=== PATIENT | female | born 1960 | race Caucasian/White ===

== ENCOUNTER → 2018-07-26 | Day surgery (SDC) | payer BC ==
[2018-07-22 13:01] LABS: BASOPHILS % 0.2 % (0.0-1.0); EOSINOPHILS % 0.1 % (0.0-6.0); HEMOGLOBIN 13.9 g/dL (12.0-16.0); LYMPHOCYTES # (AUTO) 0.8 (1.0-3.2); LYMPHOCYTES % 4.9 % (18.0-39.1); MEAN CORPUSCULAR HEMOGLOBIN 29.6 pg (28-32); MEAN CORPUSCULAR HGB CONC 32.3 g/dL (31-35); MEAN CORPUSCULAR VOLUME 91.7 fL (81-99); MONOCYTES # (AUTO) 0.5 (0.2-0.8); MONOCYTES % 3.1 % (4.4-11.3); NEUTROPHILS # (AUTO) 15.3 (2.1-6.9); NEUTROPHILS % 90.3 % (38.7-80.0); PLATELET COUNT 319 x10e3/uL (140-360); RED BLOOD COUNT 4.69 x10e6/uL (3.6-5.1); RED CELL DISTRIBUTION WIDTH 16.9 % (11.7-14.4)
[2018-07-22 13:18] LABS: ANION GAP 18.2 mmol/L (8-16); BLOOD UREA NITROGEN 11 mg/dL (7-26); BUN/CREATININE RATIO 14 (6-25); CALCIUM 9.8 mg/dL (8.4-10.2); CARBON DIOXIDE 28 mmol/L (22-29); CHLORIDE 99 mmol/L (98-107); CREATININE, SERUM 0.76 mg/dL (0.57-1.11); EST GLOMERULAR FILTRATION RATE > 60 ML/MIN (60-); GLUCOSE 164 mg/dL (74-118); POTASSIUM 4.2 mmol/L (3.5-5.1); SODIUM 141 mmol/L (136-145)
--- NOTE | 2018-07-22 13:26 | Diagnostic Imaging Report ---
EXAMINATION: PA and lateral views of the chest. COMPARISON: None CLINICAL HISTORY: Preoperative study for thumb surgery DISCUSSION: The lungs are well-inflated. No focal airspace consolidation, pleural effusion, or pneumothorax. Linear opacity in the lingula compatible with scar or subsegmental atelectasis. Increased attenuation over the lung bases reflects summation from overlying soft tissues. Spinal stimulator device projects over the vertebral column. Cervical spine fusion hardware partially visualized. Normal heart size without overt pulmonary edema. No acute osseous abnormality. IMPRESSION: Linear atelectasis or scar in the lingula. Otherwise no acute cardiopulmonary abnormality. Signed by: Dr. Brandan Toledo M.D. on 07/22/2018 1:22 PM
[~2018-07-26] MED LIST: ACETAMINOPHEN 1000 MG/100 ML IV ONE; ADVAIR INH; AMILORIDE HCL5 MG; AMLODIPINE BESYL5 MG PO; AZATHIOPRINE PO; BACITRACIN 50,000 UNIT VIAL ONE; BENZONATATE100 MG PO; BROVANA15 MCG/2 M; BUPIVACAINE HCL 0.5% INJ 30 ML VIAL INJ ONE; BUTALB-ACETAMI1 EACH; CYMBALTA30 MG; DICYCLOMINE HCL10 MG PO; DILTIAZEM 24HR180 MG; DUO NEBULIZER; FENTANYL CITRATE/PF 100MCG/2 ML INJ ONE; GABAPENTIN300 MG PO; IMITREX25 MG; KETOROLAC TROMETHAMINE 30 MG/ML VIAL ONE; LIDOCAINE HCL 0.5% LOCAL INJ 50 ML VIAL INJ ONE; LIDOCAINE HCL 2% LOCAL INJ 5 ML SDV VIAL INJ ONE; LYRICA75 MG PO; METFORMIN HCL500 M1; MIDAZOLAM HCL 2 MG/2 ML VIAL ONE; MUPIROCIN 2% OINT 22 GM TUBE ONE; OMEPRAZOLE40 MG; PREDNISONE20 MG PO; PROAIR HFA INH8.5 GM; PROPOFOL IV EMULSION 10 MG/ML 20 ML VIAL ONE; SAVELLA100 MG PO; SPIRIVA18 MCG INH; TYLENOL WITH C1 EACH PO; VITAMIN D400 UNIT PO; XANEX; stiolto
--- OUTSIDE RECORDS SUMMARY | 2018-07-26 06:37 | XMS REPORT | Clinical Summary ---
Author Author [facility] Organization [facility] Address Unknown Phone Unavailable Care Team Providers Care Tax Associate Name Role Phone Ej Pemberton MD PCP Allergies Active Allergy Reactions Severity Noted Date Comments Diclofenac Anaphylaxis High 07/25/2014 Erythromycin 08/14/2015 Erythromycin Estolate Rash, Shortness Of Breath High 03/26/2015 Patient is allergic to all antibiotics containing "MYCIN" Patient is allergic to all antibiotics containing "MYCIN" Pneumococcal Vaccine 08/14/2015 Sulfa (Sulfonamide Rash High 08/21/2013 Antibiotics) Vancomycin Analogues High 08/15/2015 Rivaroxaban Rash High 08/21/2013 Rash on face and neck Rash on face and neck Piperacillin-Tazobactam Swelling Medium 05/16/2017 Current Medications Prescription Sig. Disp. Refills Start End Date Status Date pregabalin (LYRICA) 150 Take 150 mg by mouth 2 Active MG capsule (two) times a day. ipratropium-albuterol Take 3 mL by nebulization Active (DUO-NEB) 0.5-2.5 mg/mL every 4 (four) hours. nebulizer albuterol (PROAIR Inhale 2 puffs daily as Active HFA,PROVENTIL needed for wheezing. HFA,VENTOLIN HFA) 90 mcg/actuation inhaler gabapentin (NEURONTIN) Take 600 mg by mouth 3 Active 600 mg tablet (three) times a day. metFORMIN (GLUMETZA) Take 1,000 mg by mouth 2 Active 1,000 mg 24 hr tablet (two) times a day with meals. SUMAtriptan (IMITREX) 50 Take 50 mg by mouth once Active MG tablet as needed for migraine. May repeat in 2 hours if unresolved. Do not exceed 200 mg in 24 hours. acetaminophen-codeine Take 1 tablet by mouth Active (TYLENOL WITH CODEINE #4) every 6 (six) hours as 300-60 mg per tablet needed for moderate pain. azaTHIOprine (IMURAN) 50 Take 50 mg by mouth 2 Active mg tablet (two) times a day. butalbital-acetaminophen Take 1 tablet by mouth Active (BUPAP) 50-325 mg tablet every 4 (four) hours as needed. benzonatate (TESSALON) Take 100 mg by mouth 3 Active 100 MG capsule (three) times a day as needed for cough. ALPRAZolam (XANAX) 1 MG Take 1 mg by mouth every Active tablet 8 (eight) hours as needed for anxiety. arformoterol (BROVANA) 15 Take 15 mcg by Active mcg/2 mL solution for nebulization 2 (two) nebulization times a day. DULoxetine (CYMBALTA) 30 Take 30 mg by mouth Active MG capsule daily. diltiazem CD (CardIZEM Take 240 mg by mouth Active CD) 180 MG 24 hr capsule daily. omeprazole (PriLOSEC) 40 Take 40 mg by mouth Active MG capsule daily. VITAMIN D3-FOLIC ACID Take 1.25 mg by mouth 3 Active ORAL (three) times a week. dicyclomine (BENTYL) 10 TAKE ONE CAPSULE BY MOUTH 90 capsule 0 06/13/20 Active MG capsule THREE TIMES A DAY 18 SUMAtriptan (IMITREX) 5 1 spray into each nostril Active mg/actuation nasal spray every 2 (two) hours as needed for migraine. predniSONE (DELTASONE) 20 Take 20 mg by mouth Active mg tablet daily. gabapentin (NEURONTIN) Take 600 mg by mouth 3 Active 600 mg tablet (three) times a day. budesonide-formoterol Inhale 2 puffs 2 (two) 03/29/20 Discontin (SYMBICORT) 80-4.5 times a day. 18 ued mcg/actuation inhaler SUMAtriptan (IMITREX) 50 Take one tablet at the 12/18/19 11/04/19 Discontin MG tablet onset of your migrane 16 18 ued headache. You may repeat the dose in 2 hours if needed. Do not exceed 2 tablets in 24 hours. ALPRAZolam (XANAX) 0.25 TAKE ONE TABLET BY MOUTH 05/28/20 04/07/20 Discontin MG tablet TWICE DAILY NEEDED 16 18 ued metoprolol tartrate Take 25 mg by mouth 2 03/29/20 Discontin (LOPRESSOR) 25 MG tablet (two) times a day. 2 18 ued amLODIPine (NORVASC) 10 Take 5 mg by mouth every 11/04/19 Discontin mg tablet morning. (1/2 tab daily) 18 ued gemfibrozil (LOPID) 600 Take 600 mg by mouth 2 04/07/20 Discontin MG tablet (two) times a day. 18 ued SUMAtriptan (IMITREX) 20 1 spray into each nostril 11/04/19 Discontin mg/actuation nasal spray every 2 (two) hours as 18 ued needed for migraine. ergocalciferol (VITAMIN Take 50,000 Units by 05/12/20 Discontin D2) 50,000 unit capsule mouth once a week. 18 ued azaTHIOprine (IMURAN) 50 Take 50 mg by mouth every 03/29/20 Discontin mg tablet morning. 18 ued tiotropium (SPIRIVA) 18 Place 1 puff (1 capsule 30 capsule 2 04/16/20 08/24/20 Discontin mcg per inhalation total) into inhaler and 17 17 ued capsule inhale once daily. CALCIUM CARBONATE Take 1 tablet by mouth 2 05/12/20 Discontin (CALCIUM 600 ORAL) (two) times a day. 18 ued predniSONE (DELTASONE) 10 Take 5 mg by mouth every 11/04/19 Discontin mg tablet morning. 18 ued omeprazole (PriLOSEC) 40 TAKE ONE CAPSULE BY MOUTH 30 capsule 2 07/02/20 09/30/20 Discontin MG capsuleIndications: DAILY 17 17 ued Gastroesophageal reflux disease, esophagitis presence not specified, Dyspepsia glycopyrrolate-formoterol Inhale 2 (two) times a 11/19/19 Discontin (BEVESPI AEROSPHERE) day. 18 ued 9-4.8 mcg HFA aerosol inhaler acetaminophen-codeine Take 1 tablet by mouth 11/04/19 Discontin (TYLENOL WITH CODEINE #4) every 6 (six) hours as 18 ued 300-60 mg per tablet needed for moderate pain. mirabegron 25 mg tablet Take 1 tablet (25 mg 90 tablet 3 08/24/20 03/29/20 Discontin extended release 24 total) by mouth daily. 17 18 ued hrIndications: Overactive bladder dicyclomine (BENTYL) 10 TAKE ONE CAPSULE BY MOUTH 90 capsule 1 09/07/20 12/15/19 Discontin MG capsule THREE TIMES A DAY FOR 30 17 18 ued DAYS omeprazole (PriLOSEC) 40 TAKE ONE CAPSULE BY MOUTH 30 capsule 2 10/01/20 01/14/20 Discontin MG capsuleIndications: DAILY 17 18 ued Gastroesophageal reflux disease, esophagitis presence not specified, Dyspepsia sucralfate (CARAFATE) 1 Take 1 tablet (1 g total) 90 tablet 3 10/12/19 11/11/19 gram tablet by mouth 3 (three) times 18 18 a day for 30 days. tiotropium (SPIRIVA) 18 Place 1 puff (1 capsule 30 capsule 3 11/03/19 12/04/19 mcg per inhalation total) into inhaler and 18 18 capsule inhale once daily for 30 days. nystatin (MYCOSTATIN) Take 10 mL by mouth 4 200 mL 0 11/02/19 11/07/19 100,000 unit/mL (four) times a day for 5 18 18 suspension days. Swish in mouth diltiazem CD (CardIZEM Take 1 capsule (120 mg 30 capsule 3 11/03/19 12/04/19 CD) 120 MG 24 hr capsule total) by mouth daily for 18 18 30 days. predniSONE (DELTASONE) 10 Take 3 tablets (30 mg 90 tablet 0 11/03/19 12/04/19 mg tablet total) by mouth daily for 18 18 30 days. acetaminophen-codeine Take 1 tablet by mouth 30 tablet 0 11/02/19 11/09/19 (TYLENOL WITH CODEINE #4) every 6 (six) hours as 18 300-60 mg per tablet needed for moderate pain for up to 7 days. hydrocodone-chlorpheniram Take 5 mL by mouth every 60 mL 0 11/02/19 11/08/19 ine (TUSSIONEX 12 (twelve) hours as 18 PENNKINETIC) 10-8 mg/5 mL needed for cough (severe ER suspension cough) for up to 6 days. Max Daily Amount: 10 mL levoFLOXacin (LEVAQUIN) Take 1 tablet (500 mg 5 tablet 0 11/02/19 11/04/19 Discontin 500 MG tablet total) by mouth daily for 18 18 ued 5 days. butalbital-acetaminophen- Take 1 tablet by mouth 30 tablet 0 11/04/19 12/05/19 caff (FIORICET, ESGIC) every 6 (six) hours as 18 18 50-325-40 mg per tablet needed for headaches for up to 30 days. linezolid (ZYVOX) 600 mg Take 1 tablet (600 mg 20 tablet 0 11/04/19 11/14/19 tablet total) by mouth 2 (two) 18 18 times a day for 10 days. ynqurtix-ldqcptlsee-pzubi Apply topically 2 (two) 28 g 0 11/04/19 12/05/19 yxin B (NEOSPORIN) times a day for 30 days. 18 18 ointment amLODIPine (NORVASC) 10 Take 10 mg by mouth 04/07/20 Discontin mg tablet daily. 18 ued spironolactone Take 50 mg by mouth 03/29/20 Discontin (ALDACTONE) 50 MG tablet daily. 18 ued SUCRALFATE ORAL Take by mouth. 03/29/20 Discontin 18 ued vitamin D3-folic acid Take by mouth daily. 05/12/20 Discontin 2,500 unit- 1 mg tablet 18 ued dicyclomine (BENTYL) 10 TAKE ONE CAPSULE BY MOUTH 90 capsule 0 12/15/19 01/22/20 Discontin MG capsule THREE TIMES A DAY FOR 30 18 18 ued DAYS omeprazole (PriLOSEC) 40 TAKE ONE CAPSULE BY MOUTH 30 capsule 2 01/14/20 03/29/20 Discontin MG capsuleIndications: DAILY 18 18 ued Gastroesophageal reflux disease, esophagitis presence not specified, Dyspepsia dicyclomine (BENTYL) 10 TAKE ONE CAPSULE BY MOUTH 90 capsule 0 01/25/20 03/01/20 Discontin MG capsule THREE TIMES A DAY 18 18 ued dicyclomine (BENTYL) 10 TAKE ONE CAPSULE BY MOUTH 90 capsule 1 03/01/20 06/12/20 Discontin MG capsule THREE TIMES A DAY 18 18 ued predniSONE (DELTASONE) 20 Take 20 mg by mouth 05/17/20 Discontin mg tablet daily. 18 ued omeprazole (PriLOSEC) 40 TAKE ONE CAPSULE BY MOUTH 30 capsule 3 04/14/20 04/22/20 Discontin MG capsuleIndications: DAILY 18 18 ued Gastroesophageal reflux disease, esophagitis presence not specified, Dyspepsia clonIDINE HCl (CATAPRES) Take 1 tablet (0.2 mg 90 tablet 2 05/17/20 06/13/20 Discontin 0.2 MG tablet total) by mouth 3 (three) 18 18 ued times a day for 30 days. methylPREDNISolone follow package directions 21 tablet 0 05/17/20 05/22/20 (MEDROL, DEVENDRA,) 4 mg 18 18 tablet levoFLOXacin (LEVAQUIN) Take 1 tablet (500 mg 7 tablet 0 05/17/20 05/24/20 500 MG tablet total) by mouth daily for 18 18 7 days. sodium,potassium,mag Please use as directed 354 mL 0 05/24/20 06/13/20 Discontin sulfates (SUPREP BOWEL 18 18 ued PREP KIT) 17.5-3.13-1.6 gram recon soln Active Problems Problem Noted Date Abdominal pain 05/24/2018 Bloating 04/22/2018 Acute respiratory failure (HCC) 10/24/2017 COPD exacerbation ([facility]) 10/21/2017 Lumbar radiculopathy 09/20/2017 Overactive bladder 08/24/2017 Sacroiliitis ([facility]) 07/26/2017 Chronic low back pain 07/26/2017 Laury esophagitis ([facility]) 05/24/2017 Obstructive chronic bronchitis with acute bronchitis ([facility]) 05/18/2017 Sepsis affecting skin ([facility]) 05/18/2017 Atelectasis 05/18/2017 Cellulitis 05/14/2017 Other dysphagia 05/14/2017 Overview: Added automatically from request for surgery [id number] Oxygen dependent 05/05/2017 Irreducible ventral incisional hernia 04/30/2017 Gross hematuria 02/23/2017 Calculus of kidney 02/23/2017 AVILA (stress urinary incontinence, female) 02/23/2017 Gastroesophageal reflux disease 08/11/2016 Diaphragmatic hernia without obstruction and without gangrene 08/11/2016 Dyspepsia 08/11/2016 Polyp of colon 08/11/2016 Diverticulosis large intestine w/o perforation or abscess w/o bleeding 08/11/2016 Internal hemorrhoids 08/11/2016 Gastric polyps 07/07/2016 Constipation 07/07/2016 Personal history of colonic polyps 07/07/2016 Encounters Date Type Specialty Care Team Description 07/13/2018 Hospital Radiology Shlomo Dias Screening breast Encounter III, examination 07/13/2018 Ancillary Access Shlomo Dias Screening breast Orders III, examination 07/12/2018 Transcribe Access Shlomo Dias Screening breast Orders MD UMANG examination (Primary Dx) 06/14/2018 [facility] Gastroenterology Ajay Mera MD Benign colon polyp Encounter 06/14/2018 Procedure Pass Gastroenterology 06/14/2018 Surgery GastroenterAjay Grace MD COLONOSCOPY with bx 06/13/2018 Anesthesia Gastroenterology Germán Prabhakar MD Event 06/12/2018 Refill Gastroenterology Ajay Mera MD 06/01/2018 [facility] Radiology Yair Talavera MD Impingement syndrome of Encounter left shoulder 05/26/2018 Transcribe Access Yair Talavera MD Impingement syndrome of Orders left shoulder (Primary Dx) 05/24/2018 Office Visit Gastroenterology Ajay Mera MD Abdominal pain, unspecified abdominal location (Primary Dx); Polyp of colon, unspecified part of colon, unspecified type; Gastroesophageal reflux disease, esophagitis presence not specified; Dyspepsia; Oxygen dependent 05/11/2018 [facility] General Internal Medicine Erika Dhillon MD COPD exacerbation - Encounter (Primary Dx) 05/17/2018 04/22/2018 Office Visit Gastroenterology Ajay Mera MD Gastroesophageal reflux disease, esophagitis presence not specified (Primary Dx); Dyspepsia; Hyperplastic colonic polyp, unspecified part of colon; Bloating 04/14/2018 Refill Gastroenterology Ajay Mera MD Gastroesophageal reflux disease, esophagitis presence not specified; Dyspepsia 04/11/2018 [facility] Radiology Ajay Mera MD Other dysphagia Encounter 04/08/2018 [facility] Gastroenterology Ajay Mera MD Other dysphagia Encounter 04/08/2018 Anesthesia Gastroenterology Cristiano Stark MD Event 04/08/2018 Procedure Pass Gastroenterology 04/08/2018 Surgery Gastroenterology Ajay Mera MD ESOPHAGOGASTRODUODENOSCOP Y (EGD) with BX 03/29/2018 Office Visit Gastroenterology Ajay Mera MD Other dysphagia (Primary Dx); Gastric polyps; Dyspepsia; Gastroesophageal reflux disease, esophagitis presence not specified; Hyperplastic colonic polyp, unspecified part of colon; Oxygen dependent; Abdominal pain, unspecified abdominal location 03/28/2018 [facility] Radiology Padmini Oshea MD Left shoulder pain, Encounter unspecified chronicity 03/23/2018 Transcribe Padmini Cruz MD Left shoulder pain, Orders unspecified chronicity (Primary Dx) 03/22/2018 HardikriPadmini Campos MD Orders 03/01/2018 Refill GastroenterAjay Grace MD 01/21/2018 Refill GastroenterAjay Grace MD 01/13/2018 Refill Gastroenterology Ajay Mera MD Gastroesophageal reflux disease, esophagitis presence not specified; Dyspepsia 12/14/2017 Refill Gastroenterology Ajay Mera MD 11/25/2017 Hospital Radiology Ej Pemberton MD Deep phlebitis of left Encounter leg 11/25/2017 Transcribe Access Ej Pemberton MD Deep phlebitis of left Orders leg (Primary Dx) 11/19/2017 Office Visit Pulmonology Bobby Carrizales, [place] chronic MD bronchitis without exacerbation (Primary Dx); Dependence on supplemental oxygen; Centrilobular emphysema 11/05/2017 Patient Quality Hermelinda Cullen MA Outreach 10/21/2017 [facility] General Internal Medicine Jerilyn Zepeda MD COPD exacerbation - Encounter Carolina Oliveros MD (Primary Dx) 11/04/2017 Liana Clarke MD 10/12/2017 Office Visit Gastroenterology Ajay Mera MD Gastroesophageal reflux disease, esophagitis presence not specified (Primary Dx); Dyspepsia; Diverticulosis large intestine w/o perforation or abscess w/o bleeding; Hyperplastic colonic polyp, unspecified part of colon; Internal hemorrhoids 09/30/2017 Refill Gastroenterology Ajay Mera MD Gastroesophageal reflux disease, esophagitis presence not specified; Dyspepsia 09/20/2017 [facility] General Surgery Amanda Sanon Lumbar radiculopathy Encounter MD Jaun (Primary Dx) 09/20/2017 Anesthesia General Surgery Lopez Enriquez MD Event 09/20/2017 Procedure Pass General Surgery 09/20/2017 Surgery General Surgery Amanda Sanon LEFT L3/4 L4/5 LUMBAR MD Jaun TRANSFORAMINAL EPIDURAL STEROID INJECTION 09/07/2017 Refill Gastroenterology Ajay Mera MD 08/24/2017 Office Visit Urology Elisabeth Rodriguez MD AVILA (stress urinary incontinence, female) (Primary Dx); Overactive bladder 08/16/2017 [facility] Surgery Amanda Sanon Chronic pain syndrome Encounter MD Jaun (Primary Dx); Postlaminectomy syndrome, lumbar region; Postlaminectomy syndrome, cervical region 08/16/2017 Anesthesia General Surgery Rhina El MD Event 08/16/2017 Procedure Pass General Surgery 08/16/2017 Surgery General Surgery Amanda Sanon SPINAL CORD STIMULATOR MD Jaun EXPLANTATION 08/06/2017 Office Visit Pulmonology Bobby Carrizales, Obstructive chronic MD bronchitis without exacerbation (Primary Dx); Abnormal CT scan, chest; Dependence on supplemental oxygen; Centrilobular emphysema 07/26/2017 [facility] Surgery Amanda Sanon Sacroiliitis (Primary Encounter MD Jaun Dx); Chronic bilateral low back pain with bilateral sciatica 07/26/2017 Anesthesia General Surgery Bety Villeda MD Event 07/26/2017 Procedure Pass General Surgery 07/26/2017 Surgery General Surgery Amanda Sanon LEFT SACROILIAC JOINT MD Jaun INJECTION after 07/25/2017 Immunizations Name Dates Previously Given Next Due FLUCELVAX QUAD PF (0.5mL 10/24/2017 syringe) Family History Medical History Relation Name Comments Cancer Father Bladder Glaucoma Mother Hypertension Mother Relation Name Status Comments Father Mother Alive Social History Tobacco Use Types Packs/Day Years Used Date Former Smoker Cigarettes, Electronic 46 Quit: 03/2016 Cigarettes Smokeless Tobacco: Never Used Comments: 2 cigarretes a day X 45 YEARS Alcohol Use Drinks/Week oz/Week Comments No Sex Assigned at Date Recorded Not on file Last Filed Vital Signs Vital Sign Reading Time Taken Blood Pressure 126/60 06/14/2018 8:22 AM CDT Pulse 76 06/14/2018 8:22 AM CDT Temperature 36.1 C (97 F) 06/14/2018 7:52 AM CDT Respiratory Rate 22 06/14/2018 8:22 AM CDT Oxygen Saturation 97% 06/14/2018 8:22 AM CDT Inhaled Oxygen - - Concentration Weight 80.3 kg (177 lb) 06/14/2018 7:02 AM CDT Height 152.4 cm (5') 06/14/2018 7:02 AM CDT Body Mass Index 34.57 06/14/2018 7:02 AM CDT Plan of Treatment Health Maintenance Due Date Last Done Comments CERVICAL CANCER SCREENING 1982 SHINGRIX VACCINE (#1) 2011 INFLUENZA VACCINE 05/04/2018 10/24/2017, 06/27/2015, 08/16/2014, Additional history exists BREAST CANCER SCREENING 07/13/2020 07/13/2018, 07/09/2017 COLON CANCER SCREENING 07/25/2024 07/25/2014 Implants Implanted Type Area Parts Sales Advisor Device Expiration Model / Identifier Date Serial / Lot System Sling Mdurethrl To Halo Surgical N/A: FRANKLIN 06/03/2019 [id number] Obtryx - [id number] Implants; Vagina SCIENTIFIC BRUNO 1 / Implanted: Qty: 1 on 03/10/2017 by Expanders; / Elisabeth Rodriguez MD Extenders; [id number] Surgical 8 Wires System Sling Mdurethrl To Halo Surgical N/A: FRANKLIN 06/03/2019 [id number] Obtryx - [id number] Implants; Uterus SCIENTIFIC BRUNO 1 / Implanted: 03/10/2017 (Quantity not Expanders; / on file) Extenders; [id number] Surgical Wires Device Mesh Hrnia Rpr Patch 1 3/4in Surgical N/A: N/A ETHICON US- EJ 05/03/2019 PHSM / 3 15/16in Med - [id number] Mesh or / Implanted: Qty: 1 on 04/30/2017 by Tissue [id number] Shun Garcia MD Barrier Products Explanted Type Area Parts Sales Advisor Device Expiration Model / Identifier Date Serial / Lot Stimulator Stimulator Explanted: Qty: 2 on 08/16/2017 by Amanda Sanon MD Procedures Procedure Name Priority Date/Time Associated Diagnosis Comments MAMMO BREAST SCREEN Routine 07/13/2018 Screening breast Results for this TOMOSYNTHESIS BILATERAL 9:47 AM CDT examination procedure are in the results section. SURGICAL PATHOLOGY Routine 06/14/2018 Results for this REQUEST 11:45 AM CDT procedure are in the results section. COLONOSCOPY 06/14/2018 Benign colon polyp 7:30 AM CDT POC GLUCOSE Routine 06/14/2018 Results for this 7:04 AM CDT procedure are in the results section. FL ARTHROGRAM SHOULDER Routine 06/01/2018 Impingement syndrome of Results for this LEFT 10:20 AM CDT left shoulder procedure are in the results section. POC GLUCOSE Routine 05/17/2018 Results for this 6:15 AM CDT procedure are in the results section. POC GLUCOSE Routine 05/16/2018 Results for this 8:34 PM CDT procedure are in the results section. POC GLUCOSE Routine 05/16/2018 Results for this 4:40 PM CDT procedure are in the results section. POC GLUCOSE Routine 05/16/2018 Results for this 11:43 AM CDT procedure are in the results section. POC GLUCOSE Routine 05/16/2018 Results for this 6:44 AM CDT procedure are in the results section. POC GLUCOSE Routine 05/15/2018 Results for this 8:50 PM CDT procedure are in the results section. POC GLUCOSE Routine 05/15/2018 Results for this 4:03 PM CDT procedure are in the results section. POC GLUCOSE Routine 05/15/2018 Results for this 11:17 AM CDT procedure are in the results section. POC GLUCOSE Routine 05/15/2018 Results for this 7:09 AM CDT procedure are in the results section. POC GLUCOSE Routine 05/14/2018 Results for this 9:02 PM CDT procedure are in the results section. POC GLUCOSE Routine 05/14/2018 Results for this 4:00 PM CDT procedure are in the results section. POC GLUCOSE Routine 05/14/2018 Results for this 10:58 AM CDT procedure are in the results section. ZZESTIMATED GFR Routine 05/14/2018 Results for this 5:52 AM CDT procedure are in the results section. BASIC METABOLIC PANEL Routine 05/14/2018 Results for this 5:52 AM CDT procedure are in the results section. CBC HEMOGRAM Routine 05/14/2018 Results for this 5:52 AM CDT procedure are in the results section. POC GLUCOSE Routine 05/14/2018 Results for this 5:31 AM CDT procedure are in the results section. POC GLUCOSE Routine 05/13/2018 Results for this 8:35 PM CDT procedure are in the results section. POC GLUCOSE Routine 05/13/2018 Results for this 4:07 PM CDT procedure are in the results section. POC GLUCOSE Routine 05/13/2018 Results for this 11:29 AM CDT procedure are in the results section. POC GLUCOSE Routine 05/13/2018 Results for this 6:03 AM CDT procedure are in the results section. ZZESTIMATED GFR Routine 05/13/2018 Results for this 4:52 AM CDT procedure are in the results section. HEMOGLOBIN A1C Routine 05/13/2018 Results for this 4:52 AM CDT procedure are in the results section. BASIC METABOLIC PANEL Routine 05/13/2018 Results for this 4:52 AM CDT procedure are in the results section. CBC HEMOGRAM Routine 05/13/2018 Results for this 4:52 AM CDT procedure are in the results section. RESPIRATORY PATHOGEN Routine 05/13/2018 Results for this PANEL 3:34 AM CDT procedure are in the results section. POC GLUCOSE Routine 05/12/2018 Results for this 8:59 PM CDT procedure are in the results section. GRAM STAIN Routine 05/12/2018 Results for this 8:10 PM CDT procedure are in the results section. SPUTUM CULTURE Routine 05/12/2018 Results for this 8:10 PM CDT procedure are in the results section. POC GLUCOSE Routine 05/12/2018 Results for this 4:07 PM CDT procedure are in the results section. POC GLUCOSE Routine 05/12/2018 Results for this 11:29 AM CDT procedure are in the results section. POC GLUCOSE Routine 05/12/2018 Results for this 6:22 AM CDT procedure are in the results section. HEMOGLOBIN A1C Routine 05/12/2018 Results for this 4:23 AM CDT procedure are in the results section. ZZESTIMATED GFR Routine 05/12/2018 Results for this 4:23 AM CDT procedure are in the results section. BASIC METABOLIC PANEL Routine 05/12/2018 Results for this 4:23 AM CDT procedure are in the results section. CBC HEMOGRAM Routine 05/12/2018 Results for this 4:23 AM CDT procedure are in the results section. FL UGI W AIR GLUC HD Routine 04/11/2018 Other dysphagia Results for this BARIUM 9:11 AM CDT procedure are in the results section. SURGICAL PATHOLOGY Routine 04/08/2018 Results for this REQUEST 11:23 AM CDT procedure are in the results section. ESOPHAGOGASTRODUODENOSCOP 04/08/2018 Other dysphagia Y (EGD) 10:[address] UPPER EXTREMITY WO Routine 03/28/2018 Left shoulder pain, Results for this LEFT 11:03 AM CDT unspecified chronicity procedure are in the results section. US DUPLEX VENOUS LOWER Routine 11/25/2017 Deep phlebitis of left Results for this EXTREMITY LEFT 6:43 PM TECHNICAL SALES CONSULTANT leg procedure are in the results section. XR CHEST 1 VW PORTABLE STAT 11/04/2017 Results for this 8:47 AM TECHNICAL SALES CONSULTANT procedure are in the results section. MANUAL DIFFERENTIAL Routine 11/03/2017 Results for this 6:04 AM TECHNICAL SALES CONSULTANT procedure are in the results section. ZZESTIMATED GFR Routine 11/03/2017 Results for this 6:04 AM TECHNICAL SALES CONSULTANT procedure are in the results section. CBC WITH PLATELET AND Routine 11/03/2017 Results for this DIFFERENTIAL 6:04 AM TECHNICAL SALES CONSULTANT procedure are in the results section. BASIC METABOLIC PANEL Routine 11/03/2017 Results for this 6:04 AM TECHNICAL SALES CONSULTANT procedure are in the results section. MANUAL DIFFERENTIAL Routine 11/02/2017 Results for this 7:19 AM TECHNICAL SALES CONSULTANT procedure are in the results section. ZZESTIMATED GFR Routine 11/02/2017 Results for this 7:19 AM TECHNICAL SALES CONSULTANT procedure are in the results section. BASIC METABOLIC PANEL Routine 11/02/2017 Results for this 7:19 AM TECHNICAL SALES CONSULTANT procedure are in the results section. CBC WITH PLATELET AND Routine 11/02/2017 Results for this DIFFERENTIAL 7:19 AM TECHNICAL SALES CONSULTANT procedure are in the results section. CT ABDOMEN PELVIS WO Routine 11/01/2017 Results for this CONTRAST 10:19 PM TECHNICAL SALES CONSULTANT procedure are in the results section. XR CHEST 1 VW PORTABLE Routine 11/01/2017 Results for this 2:32 PM TECHNICAL SALES CONSULTANT procedure are in the results section. GRAM STAIN Routine 10/31/2017 Results for this 10:05 PM TECHNICAL SALES CONSULTANT procedure are in the results section. INFLUENZA ANTIGEN Routine 10/31/2017 Results for this 10:05 PM TECHNICAL SALES CONSULTANT procedure are in the results section. SPUTUM CULTURE Routine 10/31/2017 Results for this 10:05 PM TECHNICAL SALES CONSULTANT procedure are in the results section. MANUAL DIFFERENTIAL Routine 10/31/2017 Results for this 7:11 AM TECHNICAL SALES CONSULTANT procedure are in the results section. ZZESTIMATED GFR Routine 10/31/2017 Results for this 7:11 AM TECHNICAL SALES CONSULTANT procedure are in the results section. CBC WITH PLATELET AND Routine 10/31/2017 Results for this DIFFERENTIAL 7:11 AM TECHNICAL SALES CONSULTANT procedure are in the results section. BASIC METABOLIC PANEL Routine 10/31/2017 Results for this 7:11 AM TECHNICAL SALES CONSULTANT procedure are in the results section. CT CHEST WO CONTRAST STAT 10/30/2017 Results for this 2:05 PM TECHNICAL SALES CONSULTANT procedure are in the results section. HCG QUALITATIVE, SERUM STAT 10/30/2017 Results for this SCREEN 5:57 AM TECHNICAL SALES CONSULTANT procedure are in the results section. MANUAL DIFFERENTIAL Routine 10/30/2017 Results for this 5:57 AM TECHNICAL SALES CONSULTANT procedure are in the results section. ZZESTIMATED GFR Routine 10/30/2017 Results for this 5:57 AM TECHNICAL SALES CONSULTANT procedure are in the results section. CBC WITH PLATELET AND Routine 10/30/2017 Results for this DIFFERENTIAL 5:57 AM TECHNICAL SALES CONSULTANT procedure are in the results section. BASIC METABOLIC PANEL Routine 10/30/2017 Results for this 5:57 AM TECHNICAL SALES CONSULTANT procedure are in the results section. ZZESTIMATED GFR Routine 10/27/2017 Results for this 8:14 AM TECHNICAL SALES CONSULTANT procedure are in the results section. BASIC METABOLIC PANEL Routine 10/27/2017 Results for this 8:14 AM TECHNICAL SALES CONSULTANT procedure are in the results section. HC COMPLETE BLD COUNT Routine 10/27/2017 Results for this W/AUTO DIFF 8:14 AM TECHNICAL SALES CONSULTANT procedure are in the results section. ZZESTIMATED GFR Routine 10/25/2017 Results for this 10:33 AM TECHNICAL SALES CONSULTANT procedure are in the results section. BASIC METABOLIC PANEL Routine 10/25/2017 Results for this 10:33 AM TECHNICAL SALES CONSULTANT procedure are in the results section. HC COMPLETE BLD COUNT Routine 10/25/2017 Results for this W/AUTO DIFF 10:33 AM TECHNICAL SALES CONSULTANT procedure are in the results section. ECG ED PRELIMINARY Routine 10/23/2017 Results for this INTERPRETATION 4:56 PM TECHNICAL SALES CONSULTANT procedure are in the results section. ZZESTIMATED GFR Routine 10/23/2017 Results for this 4:34 AM TECHNICAL SALES CONSULTANT procedure are in the results section. HC COMPLETE BLD COUNT Routine 10/23/2017 Results for this W/AUTO DIFF 4:34 AM TECHNICAL SALES CONSULTANT procedure are in the results section. BASIC METABOLIC PANEL Routine 10/23/2017 Results for this 4:34 AM TECHNICAL SALES CONSULTANT procedure are in the results section. RESPIRATORY PATHOGEN STAT 10/22/2017 Results for this PANEL 1:18 PM TECHNICAL SALES CONSULTANT procedure are in the results section. TROPONIN Routine 10/22/2017 Results for this 6:15 AM TECHNICAL SALES CONSULTANT procedure are in the results section. ZZESTIMATED GFR Routine 10/22/2017 Results for this 6:15 AM TECHNICAL SALES CONSULTANT procedure are in the results section. HEPATIC FUNCTION PANEL Routine 10/22/2017 Results for this 6:15 AM TECHNICAL SALES CONSULTANT procedure are in the results section. BASIC METABOLIC PANEL Routine 10/22/2017 Results for this 6:15 AM TECHNICAL SALES CONSULTANT procedure are in the results section. HC COMPLETE BLD COUNT Routine 10/22/2017 Results for this W/AUTO DIFF 6:15 AM TECHNICAL SALES CONSULTANT procedure are in the results section. CT ANGIOGRAM CHEST W WO STAT 10/21/2017 Results for this CONTRAST 9:10 PM TECHNICAL SALES CONSULTANT procedure are in the results section. LACTIC ACID LEVEL, SEPSIS Timed 10/21/2017 Results for this - NOW AND REPEAT 2X EVERY 7:35 PM TECHNICAL SALES CONSULTANT procedure are in the 3 HOURS results section. INFLUENZA ANTIGEN Routine 10/21/2017 Results for this 5:35 PM TECHNICAL SALES CONSULTANT procedure are in the results section. BLOOD CULTURE, AEROBIC & Routine 10/21/2017 Results for this ANAEROBIC 5:13 PM TECHNICAL SALES CONSULTANT procedure are in the results section. D-DIMER STAT 10/21/2017 Results for this 5:10 PM TECHNICAL SALES CONSULTANT procedure are in the results section. TROPONIN Timed 10/21/2017 Results for this 5:10 PM TECHNICAL SALES CONSULTANT procedure are in the results section. LACTIC ACID LEVEL, SEPSIS Timed 10/21/2017 Results for this - NOW AND REPEAT 2X EVERY 5:10 PM TECHNICAL SALES CONSULTANT procedure are in the 3 HOURS results section. BLOOD CULTURE, AEROBIC & Routine 10/21/2017 Results for this ANAEROBIC 5:10 PM TECHNICAL SALES CONSULTANT procedure are in the results section. ECG 12-LEAD STAT 10/21/2017 Results for this 2:00 PM TECHNICAL SALES CONSULTANT procedure are in the results section. XR CHEST 1 VW PORTABLE STAT 10/21/2017 Results for this 2:00 PM TECHNICAL SALES CONSULTANT procedure are in the results section. ZZESTIMATED GFR STAT 10/21/2017 Results for this 1:35 PM TECHNICAL SALES CONSULTANT procedure are in the results section. B NATRIURETIC PEPTIDE STAT 10/21/2017 Results for this 1:35 PM TECHNICAL SALES CONSULTANT procedure are in the results section. TROPONIN STAT 10/21/2017 Results for this 1:35 PM TECHNICAL SALES CONSULTANT procedure are in the results section. LACTIC ACID LEVEL, SEPSIS STAT 10/21/2017 Results for this - NOW AND REPEAT 2X EVERY 1:35 PM TECHNICAL SALES CONSULTANT procedure are in the 3 HOURS results section. COMPREHENSIVE METABOLIC STAT 10/21/2017 Results for this PANEL 1:35 PM TECHNICAL SALES CONSULTANT procedure are in the results section. HC COMPLETE BLD COUNT STAT 10/21/2017 Results for this W/AUTO DIFF 1:35 PM TECHNICAL SALES CONSULTANT procedure are in the results section. INJECTION, STEROID, 09/20/2017 Lumbar radiculitis SPINE, LUMBAR, EPIDURAL, 10:55 AM TECHNICAL SALES CONSULTANT SINGLE Special Needs C-ARM CT AN ELECTIVE Routine 08/16/2017 ENDOTRACHEAL AIRWAY 8:26 AM TECHNICAL SALES CONSULTANT Procedure Note - Rhina El MD - 08/16/2017 8:25 AM TECHNICAL SALES CONSULTANT Airway Date/Time: 08/16/2017 8:14 AM Performed by: RHINA EL Authorized by: RHINA EL Location: OR Urgency: Elective Difficult Airway: No Anesthesio logist: RHINA EL Performed by: anesthesio logist Preoxygena rose mary with 100% O2: Yes C-spine Precaution s Maintained Throughout : Yes Mask Ventilatio n: Not attempted Final Airway Type: Endotrache al airway Final Endotrache al Airway: ETT Cuffed: Yes Technique Used: Direct laryngosco py Insertion Site: Oral Blade Type: Christine Laryngosco pe Blade/Vide olaryngosc ope Blade Size: 4 ETT Size (mm): 7.0 Cuff at minimum occlusion pressure: Yes Measured from: Lips ETT to Lips (cm): 22 Placement Verified by: CO2 detection, direct visualizat ion and equal breath sounds Laryngosco pic view: Grade IIa - partial view of glottis Rapid Sequence Induction (RSI): No Modified RSI: No Number of Attempts at Approach: 1 INJECTION, STEROID, 08/16/2017 Postlaminectomy syndrome SPINE, LUMBAR, EPIDURAL, 7:45 AM TECHNICAL SALES CONSULTANT SINGLE Special Needs C-Arm INJECTION, STEROID, 07/26/2017 Sacroiliitis SPINE, LUMBAR, EPIDURAL, 9:20 AM CDT SINGLE Special Needs C-Arm after 07/25/2017 Results * Mammo Breast Screen Tomosynthesis Bilateral (07/13/2018 9:47 AM) Narrative Performed At PROCEDURE: MAMMO BREAST SCREEN TOMOSYNTHESIS BILATERAL [facility] Computer aided detection was utilized for the interpretation. Bilateral digital screening mammogram was performed with tomosynthesis. COMPARISON EXAMS: July 2017 DENSITY:The breast tissue is almost entirely fatty. FINDINGS: No suspicious finding is seen. IMPRESSION: No mammographic evidence of malignancy. Recommend annual screening mammography and correlation with physical exam. BI-RADS 1:NEGATIVE This facility is accredited by the [employer] [place] for Mammography. A negative x-ray report should not delay biopsy if a dominant or clinically suspicious mass is present.Not all cancers are identified by x-ray. [id number] Performing Organization Address City/State/Zipcode Phone Number [facility] [address] [place] [address] * Surgical pathology request (06/14/2018 11:45 AM) Only the most recent of 2 results within the time period is included. [facility] DEPARTMENT OF PATHOLOGY AND GENOMIC MEDICINE Surgical pathology report See link below for PDF Lab [facility] DEPARTMENT OF Report PATHOLOGY AND GENOMIC MEDICINE Result status This is Final Report for [facility] DEPARTMENT OF [id number] PATHOLOGY AND GENOMIC MEDICINE Performing Organization Address City/[facility] Phone Number [address] [place] [address] PATHOLOGY AND GENOMIC MEDICINE * POC glucose (06/14/2018 7:04 AM) Only the most recent of 22 results within the time period is included. POC glucose 135 (H) 65 - 100 mg/dL [facility] DEPARTMENT OF Comment: PATHOLOGY AND Meter ID: [id number] GENOMIC MEDICINE [employer]: Lanny Marshall Performing Organization Address City/[facility] Cent[facility] Phone Number [address] [place] [address] PATHOLOGY AND GENOMIC MEDICINE * FL Arthrogram Shoulder Left (06/01/2018 10:20 AM) Narrative Performed At Examination:arthrogram with fluoroscopic guidance. [facility] CLINICAL INFORMATION: M75.42 Impingement syndrome of left shoulder, M75.42 Comparisons: Technique: Fluoroscopy time 3.7 minutes. 46 milliGreys. 20 images. Spot films were taken both before and after the injection of contrast. PROCEDURE: Using sterile aseptic technique and local infiltration anesthesia, a 22-gauge needle was placed into the anterior inferior, left glenohumeral joint with fluoroscopic guidance. 8 cc of Omnipaque 300 mg percent were injected. FINDINGS: Preliminary precontrast images obtained with fluoroscopic spot films show no soft tissue calcification and no intra-articular calcification or loose bodies. There is adequate filling of the left glenohumeral joint with no extravasation of contrast. IMPRESSION: There is no arthrographic evidence of rotator cuff tear. The acromial humeral distance is normal. Acromioclavicular distance is normal. [id number] Procedure Note Interface, Radiology Results Incoming - 06/01/2018 12:38 PM CDT Examination: arthrogram with fluoroscopic guidance. CLINICAL INFORMATION: M75.42 Impingement syndrome of left shoulder, M75.42 Comparisons: Technique: Fluoroscopy time 3.7 minutes. 46 milliGreys. 20 images. Spot films were taken both before and after the injection of contrast. PROCEDURE: Using sterile aseptic technique and local infiltration anesthesia, a 22-gauge needle was placed into the anterior inferior, left glenohumeral joint with fluoroscopic guidance. 8 cc of Omnipaque 300 mg percent were injected. FINDINGS: Preliminary precontrast images obtained with fluoroscopic spot films show no soft tissue calcification and no intra-articular calcification or loose bodies. There is adequate filling of the left glenohumeral joint with no extravasation of contrast. IMPRESSION: There is no arthrographic evidence of rotator cuff tear. The acromial humeral distance is normal. Acromioclavicular distance is normal. [id number] Performing Organization Address City/[facility] Cent[facility]ode Phone Number [facility] [address] [place] [address] * Estimated GFR (05/14/2018 5:52 AM) Only the most recent of 12 results within the time period is included. GFR Non Af Amer >90 mL/min/1.73 m2 [facility] DEPARTMENT OF PATHOLOGY AND GENOMIC MEDICINE GFR Af Amer >90 mL/min/1.73 m2 [facility] DEPARTMENT OF Comment: PATHOLOGY AND Chronic kidney disease: <60 GENOMIC MEDICINE mL/min/1.73m2 Kidney failure: <15 mL/min/1.73m2 The estimated GFR is calculated from the IDMS-traceable Modification of Diet in Renal Disease Equation. The accuracy of the calculation is poor when the creatinine is normal. Calculated values >90 mL/min/1.73m2 are not reported. This equation has not been validated in children (<18 years), women, the elderly (>70 years), or ethnic groups other than Caucasians and Americans. Specimen Plasma specimen Performing Organization Address City/State/Zipcode Phone Number [facility] DEPARTMENT OF [facility] [place] [address] PATHOLOGY AND GENOMIC MEDICINE * CBC hemogram (05/14/2018 5:52 AM) Only the most recent of 3 results within the time period is included. WBC 17.0 (H) 4.2 - 11.0 k/uL [facility] DEPARTMENT OF PATHOLOGY AND GENOMIC MEDICINE RBC 4.57 4.04 - 5.86 m/uL [facility] DEPARTMENT OF PATHOLOGY AND GENOMIC MEDICINE HGB 12.2 11.5 - 15.3 g/dL [facility] DEPARTMENT OF PATHOLOGY AND GENOMIC MEDICINE HCT 39.4 34.0 - 45.0 % [facility] DEPARTMENT OF PATHOLOGY AND GENOMIC MEDICINE MCV 86.2 80.0 - 98.0 fL [facility] DEPARTMENT OF PATHOLOGY AND GENOMIC MEDICINE MCH 26.7 (L) 27.0 - 34.0 pg [facility] DEPARTMENT OF PATHOLOGY AND GENOMIC MEDICINE MCHC 31.0 (L) 31.5 - 36.5 g/dL [facility] DEPARTMENT OF PATHOLOGY AND GENOMIC MEDICINE RDW - SD 58.4 (H) 37.0 - 51.0 fL [facility] DEPARTMENT OF PATHOLOGY AND GENOMIC MEDICINE MPV 9.1 7.4 - 10.4 fL [facility] DEPARTMENT OF PATHOLOGY AND GENOMIC MEDICINE Platelet count 295 150 - 400 k/uL [facility] DEPARTMENT OF PATHOLOGY AND GENOMIC MEDICINE Nucleated RBC 0.00 /[address] [facility] OF PATHOLOGY AND GENOMIC MEDICINE Specimen Blood Performing Organization Address City/State/Zipcode Phone Number [place] [phone] [place] [address] PATHOLOGY AND GENOMIC MEDICINE * Basic metabolic panel (05/14/2018 5:52 AM) Only the most recent of 11 results within the time period is included. Sodium 142 135 - 150 mEq/L [facility] DEPARTMENT OF PATHOLOGY AND GENOMIC MEDICINE Potassium 4.7 3.5 - 5.0 mEq/L [facility] DEPARTMENT OF PATHOLOGY AND GENOMIC MEDICINE Chloride 99 98 - 112 mEq/L [facility] DEPARTMENT OF PATHOLOGY AND GENOMIC MEDICINE CO2 31 24 - 31 mmol/L [facility] DEPARTMENT OF PATHOLOGY AND GENOMIC MEDICINE Anion gap 12@ANIO 7 - 15 mEq/L [facility] DEPARTMENT OF PATHOLOGY AND GENOMIC MEDICINE BUN 16 7 - 18 mg/dL [facility] DEPARTMENT OF PATHOLOGY AND GENOMIC MEDICINE Creatinine 0.60 0.50 - 0.90 mg/dL [facility] DEPARTMENT OF PATHOLOGY AND GENOMIC MEDICINE Glucose 168 (H) 65 - 100 mg/dL [facility] DEPARTMENT OF PATHOLOGY AND GENOMIC MEDICINE Calcium 9.5 8.3 - 10.2 mg/dL [facility] DEPARTMENT OF PATHOLOGY AND GENOMIC MEDICINE Specimen Plasma specimen Performing Organization Address City/[facility]/Zipcode Phone Number [facility] [address] [place] [address] PATHOLOGY AND GENOMIC MEDICINE * Hemoglobin A1c (05/13/2018 4:52 AM) Only the most recent of 2 results within the time period is included. Hemoglobin A1C 6.5 (H) 4.0 - 6.0 % [facility] DEPARTMENT OF Comment: PATHOLOGY AND GENOMIC MEDICINE Less than 6% - Goal of therapy for Type II Diabetes Less than 7%-Goal of therapy for Type I Diabetes Less than 8%-Accepta ble control for Type I or Type II Diabetes Greater than 8%-Unacceptabl e control; action indicated. ([id number]) Specimen Blood Performing Organization Address City/[facility] Cent[facility]ode Phone Number [address] [place] [address] PATHOLOGY AND [employer] MEDICINE * Respiratory pathogen panel (05/13/2018 3:34 AM) Only the most recent of 2 results within the time period is included. Respiratory pathogen Negative for all pathogens [facility] DEPARTMENT OF panel tested: PATHOLOGY AND Negative for Adenovirus GENOMIC MEDICINE Negative for Coronavirus HKU1 Negative for Coronavirus NL63 Negative for Coronavirus 229E Negative for Coronavirus OC43 Negative for Human Metapneumovirus Negative for Rhinovirus/Enterovirus Negative for Influenza A Negative for Influenza A/H1 Negative for Influenza A/H3 Negative for Influenza A/H1-2009 Negative for Influenza B Negative for Parainfluenza Virus 1 Negative for Parainfluenza Virus 2 Negative for Parainfluenza Virus 3 Negative for Parainfluenza Virus 4 Negative for Respiratory Syncytial Virus Negative for Bordetella pertussis Negative for Chlamydophila pneumoniae Negative for Mycoplasma pneumoniae This real-time PCR assay detects the presence of nucleic acids (RNA or DNA) for the respiratory pathogens listed. A result of "Not-detected" does not exclude the possibility of the presence of one or more pathogens at concentrations less than the detectable limits of the assay. Comment: Specimen Information Specimen Source: Nasopharyngeal Specimen Site: Left Specimen Nasopharyngeal - Left Performing Organization Address City/[facility] Cent[facility]ode Phone Number [facility] DEPARTMENT OF [address] [place] [address] PATHOLOGY AND [employer] MEDICINE * Sputum culture (05/12/2018 8:10 PM) Only the most recent of 2 results within the time period is included. Sputum culture isolate Normal oral starr isolated. [facility] DEPARTMENT OF Comment: PATHOLOGY AND Specimen Information GENOMIC MEDICINE Specimen Source: Sputum Specimen Site: Expectorated Specimen Sputum - Expectorated Performing Organization Address [facility] Cent[facility]ode Phone Number [facility] DEPARTMENT OF [address] [place] [address] PATHOLOGY AND GENOMIC MEDICINE * Gram stain (05/12/2018 8:10 PM) Only the most recent of 2 results within the time period is included. Gram stain isolate Occasional WBC's [facility] DEPARTMENT OF Many Gram positive cocci in PATHOLOGY AND [facility] GENOMIC MEDICINE Moderate Gram positive cocci in chains Comment: Specimen Information Specimen Source: Sputum Specimen Site: Expectorated Specimen Sputum - Expectorated Performing Organization Address [facility] Phone Number [facility] DEPARTMENT OF [address] [place] [id number] PATHOLOGY AND [employer] MEDICINE * FL UGI w Air Gluc HD Barium (04/11/2018 9:11 AM) Narrative Performed At EXAMINATION:FL UGI W AIR GLUC HD BARIUM [facility] CLINICAL HISTORY:R13.19 Other dysphagia, dysphagia COMPARISON:None. TECHNIQUE:UPPER GI SERIES was performed with effervescent granules and barium. FLUOROSCOPIC TIME:1.5 minutes. 165.83 milliGreys. 42 spot films. IMPRESSION: 1.Esophagus:Esophagus was distensible. There is delayed emptying of contrast from the esophagus into the stomach. There are no signs of esophageal stricture. 2.Gastroesophageal junction:There are no signs of hiatal hernia no signs of reflux. A soft tissue impression surrounding the esophagogastric junction is secondary to previous hiatal hernia surgery. 3.Stomach:Normally distensible and demonstrates normal contours and mucosal pattern. 4.Duodenum:Bulb and sweep are normal. The duodenal-jejunal junction is in the normal expected position. [id number] Procedure Note Hm Interface, Radiology Results Incoming - 04/11/2018 11:24 AM CDT EXAMINATION: FL UGI W AIR GLUC HD BARIUM CLINICAL HISTORY: R13.19 Other dysphagia, dysphagia COMPARISON: None. TECHNIQUE: UPPER GI SERIES was performed with effervescent granules and barium. FLUOROSCOPIC TIME: 1.5 minutes. 165.83 milliGreys. 42 spot films. IMPRESSION: 1. Esophagus: Esophagus was distensible. There is delayed emptying of contrast from the esophagus into the stomach. There are no signs of esophageal stricture. 2. Gastroesophageal junction: There are no signs of hiatal hernia no signs of reflux. A soft tissue impression surrounding the esophagogastric junction is secondary to previous hiatal hernia surgery. 3. Stomach: Normally distensible and demonstrates normal contours and mucosal pattern. 4. Duodenum: Bulb and sweep are normal. The duodenal-jejunal junction is in the normal expected position. [facility]-[id number] Performing Organization Address City/State/Zipcode Phone Number [facility] [address] [place] [address] * CT Upper Extremity Wo Left (03/28/2018 11:03 AM) Narrative Performed At EXAMINATION:CT UPPER EXTREMITY WO LEFT [facility] INDICATION:Shoulder pain. COMPARISON: None available. TECHNIQUE: Helical axial CT images of the left shoulder were acquired without intravenous contrast. Sagittal and coronal planar reformats were reviewed. IMPRESSION: 1.No visible acute fracture of the imaged portion of the clavicle, humerus, or scapula. 2.There is cystic change of the greater tuberosity at the level of the infraspinatus footprint which may be secondary to underlying rotator cuff tendinopathy and/or tearing. 3.There is overall mild glenohumeral osteoarthrosis with small marginal humeral head and glenoid osteophytes. There is a focal region of subcortical cystic change in the superior glenoid which is likely secondary to overlying high-grade chondromalacia. 4.Type II acromion process. Mild acromioclavicular osteoarthrosis with minimal osteophytic fragmentation of the tip of the acromion. 5.Evaluation of the soft tissues demonstrates no evidence of loss of rotator cuff or deltoid muscle bulk. No visible fracture of the imaged ribs. Prior anterior cervical discectomy and fusion. There is a partially imaged dorsal column stimulator device and multilevel spondylosis of the thoracic spine. Subsegmental atelectasis within the left lower lobe and lingula. Atherosclerosis of the thoracic aorta. Procedure Note Interface, Radiology Results Incoming - 03/28/2018 1:16 PM CDT EXAMINATION: CT UPPER EXTREMITY WO LEFT INDICATION: Shoulder pain. COMPARISON: None available. TECHNIQUE: Helical axial CT images of the left shoulder were acquired without intravenous contrast. Sagittal and coronal planar reformats were reviewed. IMPRESSION: 1. No visible acute fracture of the imaged portion of the clavicle, humerus, or scapula. 2. There is cystic change of the greater tuberosity at the level of the infraspinatus footprint which may be secondary to underlying rotator cuff tendinopathy and/or tearing. 3. There is overall mild glenohumeral osteoarthrosis with small marginal humeral head and glenoid osteophytes. There is a focal region of subcortical cystic change in the superior glenoid which is likely secondary to overlying high-grade chondromalacia. 4. Type II acromion process. Mild acromioclavicular osteoarthrosis with minimal osteophytic fragmentation of the tip of the acromion. 5. Evaluation of the soft tissues demonstrates no evidence of loss of rotator cuff or deltoid muscle bulk. No visible fracture of the imaged ribs. Prior anterior cervical discectomy and fusion. There is a partially imaged dorsal column stimulator device and multilevel spondylosis of the thoracic spine. Subsegmental atelectasis within the left lower lobe and lingula. Atherosclerosis of the thoracic aorta. Performing Organization Address City/State/Zipcode Phone Number [facility] [address] [place] [address] * Pv duplex venous lower extremity (11/25/2017 6:43 PM) Narrative Performed At EXAMINATION:US DUPLEX VENOUS LOWER EXTREMITY LEFT [facility] CLINICAL HISTORY:I80.202 Phlebitis and thrombophlebitis of unspecified deep vessels of left lower extremity, DVT COMPARISON:05/26/2017 TECHNIQUE:Grayscale, color Doppler, and spectral waveform analysis of the left lower extremity deep venous systems was performed. The left common femoral, superficial femoral, proximal deep femoral, greater saphenous, and popliteal veins were evaluated. The calf vessels were also evaluated. Contralateral common femoral vein was evaluated. FINDINGS: The left common femoral, superficial femoral, and popliteal veins are compressible. They demonstrate normal venous waveforms and response to augmentation. There is flow in the visualized calf veins. There is no evidence of a popliteal or Goldsmith's cyst. IMPRESSION: Normal left lower extremity venous Doppler examination. There is no evidence of deep venous thrombosis. [facility]-[id number] Procedure Note Interface, Radiology Results Incoming - 11/25/2017 6:49 PM TECHNICAL SALES CONSULTANT EXAMINATION: US DUPLEX VENOUS LOWER EXTREMITY LEFT CLINICAL HISTORY: I80.202 Phlebitis and thrombophlebitis of unspecified deep vessels of left lower extremity, DVT COMPARISON: 05/26/2017 TECHNIQUE: Grayscale, color Doppler, and spectral waveform analysis of the left lower extremity deep venous systems was performed. The left common femoral, superficial femoral, proximal deep femoral, greater saphenous, and popliteal veins were evaluated. The calf vessels were also evaluated. Contralateral common femoral vein was evaluated. FINDINGS: The left common femoral, superficial femoral, and popliteal veins are compressible. They demonstrate normal venous waveforms and response to augmentation. There is flow in the visualized calf veins. There is no evidence of a popliteal or Goldsmith's cyst. IMPRESSION: Normal left lower extremity venous Doppler examination. There is no evidence of deep venous thrombosis. [facility]-[id number] Performing Organization Address [facility] Phone Number [facility] [address] [place] [address] * XR Chest 1 Vw Portable (11/04/2017 8:47 AM) Only the most recent of 3 results within the time period is included. Narrative Performed At EXAMINATION:XR CHEST 1 VW PORTABLE [facility] CLINICAL HISTORY:COPD Emphysema XR CHEST 1 VW PORTABLEimages are submitted COMPARISON:11/01/2017 FINDINGS: Cardiac silhouette is enlarged. The pulmonary vasculature is within normal limits. The lung zones have no focal area of consolidation. There is no pleural effusion or pneumothorax. Electrodes are seen overlying the thoracic spine. IMPRESSION: 1. There is no acute consolidation or failure. 2. Mild cardiomegaly is present. [facility]-[id number] Procedure Note Interface, Radiology Results Incoming - 11/04/2017 8:56 AM TECHNICAL SALES CONSULTANT EXAMINATION: XR CHEST 1 VW PORTABLE CLINICAL HISTORY: COPD Emphysema XR CHEST 1 VW PORTABLE images are submitted COMPARISON: 11/01/2017 FINDINGS: Cardiac silhouette is enlarged. The pulmonary vasculature is within normal limits. The lung zones have no focal area of consolidation. There is no pleural effusion or pneumothorax. Electrodes are seen overlying the thoracic spine. IMPRESSION: 1. There is no acute consolidation or failure. 2. Mild cardiomegaly is present. [facility]-[id number] Performing Organization Address [facility] Cent[facility]ode Phone Number [facility] [address] [place] [address] * Manual differential (11/03/2017 6:04 AM) Only the most recent of 4 results within the time period is included. Manual differential PERFORMED [facility] DEPARTMENT OF PATHOLOGY AND GENOMIC MEDICINE Neutrophils 62.0 36.0 - 66.0 % [facility] DEPARTMENT OF PATHOLOGY AND GENOMIC MEDICINE Lymphocytes 20.0 (L) 24.0 - 44.0 % [facility] DEPARTMENT OF PATHOLOGY AND GENOMIC MEDICINE Monocytes 13.0 (H) 0.0 - 6.0 % [facility] DEPARTMENT OF PATHOLOGY AND GENOMIC MEDICINE Eosinophils 0.0 0.0 - 6.0 % [facility] DEPARTMENT OF PATHOLOGY AND GENOMIC MEDICINE Basophils 0.0 0.0 - 1.2 % [facility] DEPARTMENT OF PATHOLOGY AND GENOMIC MEDICINE Metamyelocytes 0 0 - 1 % [facility] DEPARTMENT OF PATHOLOGY AND GENOMIC MEDICINE Myelocytes 5 (H) 0 - 1 % [facility] DEPARTMENT OF PATHOLOGY AND GENOMIC MEDICINE Promyelocytes 0 0 - 1 % [facility] DEPARTMENT OF PATHOLOGY AND GENOMIC MEDICINE Platelet slide review Navid adequate [facility] DEPARTMENT OF PATHOLOGY AND GENOMIC MEDICINE Toxic granulation Slight [facility] DEPARTMENT OF PATHOLOGY AND GENOMIC MEDICINE Anisocytosis slight [facility] DEPARTMENT OF PATHOLOGY AND GENOMIC MEDICINE Polychromasia slightt [facility] DEPARTMENT OF PATHOLOGY AND GENOMIC MEDICINE Tear drop cells rare [facility] DEPARTMENT OF PATHOLOGY AND GENOMIC MEDICINE Ovalocytes rare [facility] DEPARTMENT OF PATHOLOGY AND GENOMIC MEDICINE Performing Organization Address City/State/Zipcode Phone Number [address] [place] [address] PATHOLOGY AND GENOMIC MEDICINE * CBC with platelet and differential (11/03/2017 6:04 AM) Only the most recent of 9 results within the time period is included. WBC 18.5 (H) 4.2 - 11.0 k/uL [facility] DEPARTMENT OF PATHOLOGY AND GENOMIC MEDICINE RBC 4.83 4.04 - 5.86 m/uL [facility] DEPARTMENT OF PATHOLOGY AND GENOMIC MEDICINE HGB 12.4 11.5 - 15.3 g/dL [facility] DEPARTMENT OF PATHOLOGY AND GENOMIC MEDICINE HCT 39.3 34.0 - 45.0 % [facility] DEPARTMENT OF PATHOLOGY AND GENOMIC MEDICINE MCV 81.4 80.0 - 98.0 fL [facility] DEPARTMENT OF PATHOLOGY AND GENOMIC MEDICINE MCH 25.7 (L) 27.0 - 34.0 pg [facility] DEPARTMENT OF PATHOLOGY AND GENOMIC MEDICINE MCHC 31.6 31.5 - 36.5 g/dL [facility] DEPARTMENT OF PATHOLOGY AND GENOMIC MEDICINE RDW - SD 51.2 (H) 37.0 - 51.0 fL [facility] DEPARTMENT OF PATHOLOGY AND GENOMIC MEDICINE MPV 9.5 7.4 - 10.4 fL [facility] DEPARTMENT OF PATHOLOGY AND GENOMIC MEDICINE Platelet count 316 150 - 400 k/uL [facility] DEPARTMENT OF PATHOLOGY AND GENOMIC MEDICINE Nucleated RBC 0.00 /100 WBC [facility] DEPARTMENT OF PATHOLOGY AND GENOMIC MEDICINE Neutrophils 62.0 36.0 - 66.0 % [facility] DEPARTMENT OF PATHOLOGY AND GENOMIC MEDICINE Lymphocytes 20.0 (L) 24.0 - 44.0 % [facility] PATHOLOGY AND GENOMIC MEDICINE Monocytes 13.0 (H) 0.0 - 6.0 % [facility] PATHOLOGY AND GENOMIC MEDICINE Eosinophils 0.0 0.0 - 6.0 % [facility] PATHOLOGY AND GENOMIC MEDICINE Basophils 0.0 0.0 - 1.2 % [facility] OF PATHOLOGY AND GENOMIC MEDICINE Specimen Blood Performing Organization Address City/State/Zipcode Phone Number [place] [phone] [place] [address] PATHOLOGY AND GENOMIC MEDICINE * CT Abdomen Pelvis Wo Contrast (11/01/2017 10:19 PM) Narrative Performed At EXAMINATION: CT ABDOMEN PELVIS WITHOUT HM [facility] COMPARISON: CT abdomen 03/02/2017. REASON FOR EXAM: R O Hematoma TECHNIQUE: Axial 5 mm sections were obtained after intravenous injection of contrast. Coronal and sagittal reconstructions were performed. All CT scans are performed using radiation dose reduction techniques. Technical factors are evaluated and adjusted to ensure appropriate moderation of exposure. Automated dose management technology is supplied to adjust the radiation dose to minimize exposure while achieving a diagnostic quality image. FINDINGS: Lower lung madden: There is mild fluid thickening of the inferior aspect of the major fissures with no focal infiltrates in the lower lungs. Liver: The liver density is homogeneous. The portal vein diameter is normal. Biliary: The gallbladder is surgically absent. There are no signs of intrahepatic biliary dilatation. Spleen: The spleen is normal in size. Pancreas: Pancreas size and lobulation is normal. There is no ductal dilatation. Adrenals: The adrenal glands are normal. Kidneys: Kidneys are normal in size. A small vascular calcifications present in the left kidney. A 2 mm nonobstructing calculus is located in the minor calyx of the middle zone of the right kidney. There is no hydronephrosis.. Lymph nodes: No retroperitonealadenopathy Vascular: Aorta and venacava diameters are normal. G.I. The bowel caliber is normal.There are no inflamatory changes. Appendix is normal. There is no bowel wall thickening or inflammatory changes. There is no free air and no free fluid. Pelvis: The urinary bladder outline is smooth. The ischiorectal fossa and inguinal regions are clear. Skeletal: There is degenerative narrowing of the L4-5 disc space. Epidural stimulator electrode is located over the lower dorsal spine. There are small focal areas of inflammation in the lower anterior abdominal wall at medication injection sites. IMPRESSION: There are no masses and no signs of a hematoma. 2 Millimeter right kidney nonobstructing intrarenal calculus [facility]-[id number] Procedure Note Hm Interface, Radiology Results Incoming - 11/01/2017 10:37 PM TECHNICAL SALES CONSULTANT EXAMINATION: CT ABDOMEN PELVIS WITHOUT COMPARISON: CT abdomen 03/02/2017. REASON FOR EXAM: R O Hematoma TECHNIQUE: Axial 5 mm sections were obtained after intravenous injection of contrast. Coronal and sagittal reconstructions were performed. All CT scans are performed using radiation dose reduction techniques. Technical factors are evaluated and adjusted to ensure appropriate moderation of exposure. Automated dose management technology is supplied to adjust the radiation dose to minimize exposure while achieving a diagnostic quality image. FINDINGS: Lower lung madden: There is mild fluid thickening of the inferior aspect of the major fissures with no focal infiltrates in the lower lungs. Liver: The liver density is homogeneous. The portal vein diameter is normal. Biliary: The gallbladder is surgically absent. There are no signs of intrahepatic biliary dilatation. Spleen: The spleen is normal in size. Pancreas: Pancreas size and lobulation is normal. There is no ductal dilatation. Adrenals: The adrenal glands are normal. Kidneys: Kidneys are normal in size. A small vascular calcifications present in the left kidney. A 2 mm nonobstructing calculus is located in the minor calyx of the middle zone of the right kidney. There is no hydronephrosis.. Lymph nodes: No retroperitonealadenopathy Vascular: Aorta and venacava diameters are normal. G.I. The bowel caliber is normal. There are no inflamatory changes. Appendix is normal. There is no bowel wall thickening or inflammatory changes. There is no free air and no free fluid. Pelvis: The urinary bladder outline is smooth. The ischiorectal fossa and inguinal regions are clear. Skeletal: There is degenerative narrowing of the L4-5 disc space. Epidural stimulator electrode is located over the lower dorsal spine. There are small focal areas of inflammation in the lower anterior abdominal wall at medication injection sites. IMPRESSION: There are no masses and no signs of a hematoma. 2 Millimeter right kidney nonobstructing intrarenal calculus [facility]-[id number] Performing Organization Address City/State/Zipcode Phone Number [facility] [address] [place] [address] * Influenza antigen (10/31/2017 10:05 PM) Only the most recent of 2 results within the time period is included. Influenza antigen Negative for Influenza A/B [facility] DEPARTMENT OF antigen. PATHOLOGY AND Comment: GENOMIC MEDICINE Specimen Information Specimen Source: Nares Specimen Site: Right Specimen Nares - Right Performing Organization Address City/State/Zipcode Phone Number [facility] DEPARTMENT OF [address] [place] [address] PATHOLOGY AND GENOMIC MEDICINE * CT Chest Wo Contrast (10/30/2017 2:05 PM) Narrative Performed At [facility] CLINICAL HISTORY: pneumonia TECHNIQUE: Multiple axial images of the chest were obtained without intravenous contrast. The lack of intravenous contrast reduces the sensitivity of detecting solid organ disease and evaluating vasculature. Sagittal and coronal computerized reformatted images were also obtained. CT imaging was performed with iterative reconstruction techniques and/or automated exposure control to reduce radiation dose. COMPARISON: Chest CT 10/21/2017 IMPRESSION: 1.Linear/bandlike areas of subsegmental atelectasis or scar are present in both lung bases, anterior right upper lobe, and in the middle lobe and lingula. There is no consolidative pneumonia. Previously seen mild inflammatory opacities in the right lower lobe appear improved. 2.Mild bilateral emphysema is stable. 3.There is no pleural or pericardial effusion. 4.No thoracic lymphadenopathy is seen. 5.Heart size is normal. 6.No acute upper abdominal abnormality is seen. The gallbladder is absent. There are punctate bilateral intrarenal nonobstructing calculi. There is evidence of gastric fundoplication. 7.No significant skeletal abnormality is seen. ACDF hardware and spine stimulator are again noted. [facility]-[id number] Procedure Note Interface, Radiology Results Incoming - 10/30/2017 2:12 PM TECHNICAL SALES CONSULTANT EXAMINATION: CT CHEST WO CONTRAST CLINICAL HISTORY: pneumonia TECHNIQUE: Multiple axial images of the chest were obtained without intravenous contrast. The lack of intravenous contrast reduces the sensitivity of detecting solid organ disease and evaluating vasculature. Sagittal and coronal computerized reformatted images were also obtained. CT imaging was performed with iterative reconstruction techniques and/or automated exposure control to reduce radiation dose. COMPARISON: Chest CT 10/21/2017 IMPRESSION: 1. Linear/bandlike areas of subsegmental atelectasis or scar are present in both lung bases, anterior right upper lobe, and in the middle lobe and lingula. There is no consolidative pneumonia. Previously seen mild inflammatory opacities in the right lower lobe appear improved. 2. Mild bilateral emphysema is stable. 3. There is no pleural or pericardial effusion. 4. No thoracic lymphadenopathy is seen. 5. Heart size is normal. 6. No acute upper abdominal abnormality is seen. The gallbladder is absent. There are punctate bilateral intrarenal nonobstructing calculi. There is evidence of gastric fundoplication. 7. No significant skeletal abnormality is seen. ACDF hardware and spine stimulator are again noted. [id number] Performing Organization Address City/State/Zipcode Phone Number [facility] [address] [place] [address] * hCG qualitative, serum screen (10/30/2017 5:57 AM) hCG qualitative, serum Negative [facility] DEPARTMENT OF Comment: PATHOLOGY AND The manufacturers stated GENOMIC MEDICINE sensitivity of HcG test for serum is >/=10 mIU/ml and urine is >/=20mIU/ml. Specimen Blood Performing Organization Address [facility]/Zipcode Phone Number [facility] DEPARTMENT OF [address] [place] [address] PATHOLOGY AND GENOMIC MEDICINE * ECG ED Preliminary Interpretation - NOT AN ORDER (10/23/2017 4:56 PM) Narrative Performed At Jerilyn Zepeda MD 10/23/20174:56 PM ECG ED Preliminary Interpretation - Not an Order Performed by: JERILYN ZEPEDA Authorized by: JERILYN ZEPEDA Rate: ECG rate:75 ECG rate assessment: normal Rhythm: Rhythm: sinus rhythm Ectopy: Ectopy: none ST segments: ST segments:Normal T waves: T waves: normal * Troponin (10/22/2017 6:15 AM) Only the most recent of 3 results within the time period is included. Troponin <0.01 0.00 - 0.60 ng/mL [facility] DEPARTMENT OF Comment: PATHOLOGY AND 0.11 - 1.49 GENOMIC MEDICINE ng/mlMay indicate increased risk of acute coronary syndrome. >=1.5 ng/ml Consistent with acute myocardial infarction. The diagnostic value of a single normal or non-diagnostic result is questionable.Serial samples at 2-6 hour intervals are required to rule out acute myocardial injury. Specimen Plasma specimen Performing Organization Address City/[facility] [place] [address] PATHOLOGY AND [employer] MEDIC[facility] * Hepatic function panel (10/22/2017 6:15 AM) Albumin 3.3 3.2 - 5.0 g/dL [facility] DEPARTMENT OF PATHOLOGY AND GENOMIC MEDICINE Total bilirubin 0.3 0.2 - 1.2 mg/dL [facility] DEPARTMENT OF PATHOLOGY AND [employer] [facility]ICINE Bilirubin direct 0.1 0.0 - 0.4 mg/dL [facility] DEPARTMENT OF PATHOLOGY AND GENOMIC MEDICINE Alkaline phosphatase 96 30 - 120 U/L [facility] DEPARTMENT OF PATHOLOGY AND GENOMIC MEDICINE Protein 7.7 6.3 - 8.2 g/dL [facility] DEPARTMENT OF PATHOLOGY AND GENOMIC MEDICINE ALT 30 30 - 65 U/L [facility] DEPARTMENT OF PATHOLOGY AND GENOMIC MEDICINE AST 31 15 - 37 U/L [facility] OF PATHOLOGY AND [employer] [facility]ICINE Specimen Plasma specimen Performing Organization Address City/[facility] [place] [address] PATHOLOGY AND [employer] [facility]INE * CTA Chest W Wo Contrast (10/21/2017 9:10 PM) Narrative Performed At EXAMINATION:CT ANGIOGRAM CHEST W WO CONTRAST [facility] CLINICAL HISTORY:DYSPNEAON EXERTION TECHNIQUE: Multiple CT angiographic images of the chest were obtained during intravenous administration of contrast. CT imaging was performed with iterative reconstruction technique and/or automated exposure control to reduce radiation dose. COMPARISON:None FINDINGS: CARDIOVASCULAR:The thoracic aorta is normal in caliber and without evidence of dissection or hemodynamically significant stenosis. The main pulmonary artery is normal in caliber and there is no central or segmental pulmonary embolism. The heart is normal in size and there is no pericardial effusion. There is calcified atherosclerotic disease of the left anterior descending coronary artery. LUNGS:There is mild to moderate centrilobular emphysema of both upper lobes. There are scattered areas of mild linear scarring/atelectasis within both lungs. There are faint centrilobular nodules within the right lower lobe, suggestive of mild pneumonitis. PLEURA:No pleural effusion or pneumothorax. LYMPH NODES:There are a few borderline large mediastinal lymph nodes, which are nonspecific but likely reactive in nature. There is no axillary or hilar lymphadenopathy. MEDIASTINUM:No mass or hematoma. Trachea and central airways are patent. BONES: There are no acute osseous abnormalities. There is anterior fusion of the lower cervical spine. Leads from an electronic device are seen terminating within the thoracic spinal canal and extending superiorly into the cervical spinal canal. UPPER ABDOMEN:No acute abnormalities. There are surgical changes related to cholecystectomy. There are also surgical changes at the gastroesophageal junction, likely related to treatment of reflux disease. IMPRESSION: 1. Right lower lobe pneumonitis. 2. No central or segmental pulmonary embolism. 3. Normal caliber of the thoracic aorta, which is without evidence of dissection or significant stenosis. [facility]-[id number] Procedure Note [facility], Radiology Results Incoming - 10/21/2017 9:24 PM TECHNICAL SALES CONSULTANT EXAMINATION: CT ANGIOGRAM CHEST W WO CONTRAST CLINICAL HISTORY: DYSPNEA ON EXERTION TECHNIQUE: Multiple CT angiographic images of the chest were obtained during intravenous administration of contrast. CT imaging was performed with iterative reconstruction technique and/or automated exposure control to reduce radiation dose. COMPARISON: None FINDINGS: CARDIOVASCULAR: The thoracic aorta is normal in caliber and without evidence of dissection or hemodynamically significant stenosis. The main pulmonary artery is normal in caliber and there is no central or segmental pulmonary embolism. The heart is normal in size and there is no pericardial effusion. There is calcified atherosclerotic disease of the left anterior descending coronary artery. LUNGS: There is mild to moderate centrilobular emphysema of both upper lobes. There are scattered areas of mild linear scarring/atelectasis within both lungs. There are faint centrilobular nodules within the right lower lobe, suggestive of mild pneumonitis. PLEURA: No pleural effusion or pneumothorax. LYMPH NODES: There are a few borderline large mediastinal lymph nodes, which are nonspecific but likely reactive in nature. There is no axillary or hilar lymphadenopathy. MEDIASTINUM: No mass or hematoma. Trachea and central airways are patent. BONES: There are no acute osseous abnormalities. There is anterior fusion of the lower cervical spine. Leads from an electronic device are seen terminating within the thoracic spinal canal and extending superiorly into the cervical spinal canal. UPPER ABDOMEN: No acute abnormalities. There are surgical changes related to cholecystectomy. There are also surgical changes at the gastroesophageal junction, likely related to treatment of reflux disease. IMPRESSION: 1. Right lower lobe pneumonitis. 2. No central or segmental pulmonary embolism. 3. Normal caliber of the thoracic aorta, which is without evidence of dissection or significant stenosis. [facility]-[id number] Performing Organization Address City/[facility]/Zipcode Phone Number [facility] [address] [place] [address] * Lactic acid level, SEPSIS - Now and repeat 2x every 3 hours (10/21/2017 7:35 PM) Only the most recent of 3 results within the time period is included. Lactic acid 1.5 0.5 - 2.2 mmol/L [facility] DEPARTMENT OF PATHOLOGY AND GENOMIC MEDICINE Specimen Blood Performing Organization Address [facility]/Zipcode Phone Number [facility] DEPARTMENT OF [address] [place] [address]. [place] [address] PATHOLOGY AND GENOMIC MEDICINE * Blood culture, aerobic & anaerobic (10/21/2017 5:13 PM) Only the most recent of 2 results within the time period is included. Blood culture isolate No growth after 5 days of [facility] DEPARTMENT OF incubation. PATHOLOGY AND Comment: [employer] [facility] Specimen Information Specimen Source: Blood Specimen Site: Peripheral Arm Left Specimen Blood Performing Organization Address [facility] Centercode Phone Number [facility] DEPARTMENT OF [address] [place] [address] PATHOLOGY AND GENOMIC MEDICINE * D-dimer (10/21/2017 5:10 PM) D-dimer 0.80 (H) 0.00 - 0.40 ug/mL [facility] [facility] DEPARTMENT OF Comment: PATHOLOGY AND Units are ug/ml Fibrinogen [employer] MEDICINE Equivalent Unit. When combined with low clinical probability, D-dimer results of less than 0.5 ug/ml FEU have a good negativepredictive value in excluding PE or DVT. For D-dimer results greater than 0.5ug/ml FEU further testing is indicated if PE or DVT is suspectedclinically. Elevated D-dimer results have been reported in DVT, PE, and DIC cases and may indicate the presence of a clot. D-dimer results may be elevated due to old age, , inflammatory diseases, trauma, post-operative states, sepsis, and malignancies. Specimen Blood Performing Organization Address City/[facility]/Zipcode Phone Number [facility] [address] [place] [address] PATHOLOGY AND GENOMIC MEDICINE * ECG 12 lead (10/21/2017 2:00 PM) Ventricular rate 75 [facility] MUSE Atrial rate [address] [facility] interval 150 [facility] QRSD interval 94 [facility] QT interval 418 [facility] QTC interval 466 [facility] P axis 1 81 [facility] QRS axis 1 85 [facility] T wave axis 82 [facility] EKG impression Normal sinus [facility] MUSE rhythm-Nonspecific T wave abnormality-Prolonged QT-Abnormal ECG-In automated comparison with ECG of 03-MAR-2017 08:48,-No significant change was found- Performing Organization Address City/[facility]/Zipcode Phone Number [facility] [place] [place] [address] [place] [address] * B natriuretic peptide (10/21/2017 1:35 PM) BNP 16 0 - 100 pg/mL [facility] DEPARTMENT OF PATHOLOGY AND GENOMIC MEDICINE Specimen Blood Performing Organization Address City/[facility]/Zipcode Phone Number [facility] [address] [place] [address] PATHOLOGY AND [employer] MEDICINE * Comprehensive metabolic panel (10/21/2017 1:35 PM) Sodium 140 135 - 150 mEq/L [facility] DEPARTMENT OF PATHOLOGY AND GENOMIC MEDICINE Potassium 4.4 3.5 - 5.0 mEq/L [facility] DEPARTMENT OF PATHOLOGY AND GENOMIC MEDICINE Chloride 103 100 - 109 mEq/L [facility] DEPARTMENT OF PATHOLOGY AND GENOMIC MEDICINE CO2 31 24 - 32 mmol/L [facility] DEPARTMENT OF PATHOLOGY AND GENOMIC MEDICINE Anion gap 6 (L) 7 - 15 mEq/L [facility] DEPARTMENT OF Comment: PATHOLOGY AND Starting from January [employer] MEDICINE , anion gap calculation no longer incorporates potassium. Please note the change. BUN 7 7 - 18 mg/dL [facility] DEPARTMENT OF PATHOLOGY AND GENOMIC MEDICINE Creatinine 0.8 0.8 - 1.5 mg/dL [facility] DEPARTMENT OF PATHOLOGY AND GENOMIC MEDICINE Glucose 114 (H) 65 - 100 mg/dL [facility] DEPARTMENT OF PATHOLOGY AND GENOMIC MEDICINE Calcium 8.0 (L) 8.6 - 10.7 mg/dL [facility] DEPARTMENT OF PATHOLOGY AND GENOMIC MEDICINE Protein 7.7 6.3 - 8.2 g/dL [facility] DEPARTMENT OF PATHOLOGY AND GENOMIC MEDICINE Albumin 3.5 3.2 - 5.0 g/dL [facility] DEPARTMENT OF PATHOLOGY AND GENOMIC MEDICINE A/G ratio 0.8 0.7 - 3.8 [facility] DEPARTMENT OF PATHOLOGY AND GENOMIC MEDICINE Alkaline phosphatase 110 30 - 120 U/L [facility] DEPARTMENT OF PATHOLOGY AND GENOMIC MEDICINE AST 28 15 - 37 U/L [facility] DEPARTMENT OF PATHOLOGY AND GENOMIC MEDICINE ALT 25 (L) 30 - 65 U/L [facility] DEPARTMENT OF PATHOLOGY AND GENOMIC MEDICINE Total bilirubin 0.2 0.2 - 1.2 mg/dL [facility] DEPARTMENT OF PATHOLOGY AND GENOMIC MEDICINE Specimen Plasma specimen Performing Organization Address City/State/Zipcode Phone Number [facility] DEPARTMENT [place] [address] [place] [address] PATHOLOGY AND GENOMIC MEDICINE after 07/25/2017 Insurance Payer Benefit Subscriber ID Type Phone Address Plan / Group BCBS BCBS OUT xxxxxxxxxxxx PPO OF STATE
--- OUTSIDE RECORDS SUMMARY | 2018-07-26 06:37 | XMS REPORT ---
Author Author [facility] Address Unknown Phone Unavailable Care Team Providers Care Resident Care Manager Rn Name Role Phone IZABELLA TIM Unavailable Unavailable Problems This patient has no known problems. Allergies, Adverse Reactions, Alerts This patient has no known allergies or adverse reactions. Medications This patient has no known medications. Results Test Description Test Time Test Comments Text Results Atomic Results Result Comments CHEST 2 VIEWS 2018-07-22 13:20:00 [place] [address] Patient Name: RYAN EASON MR #: [id number] : 1960 Age/Sex: 57/F Req #: [id number] Adm Physician: Ordered by: IZABELLA TIM MD Report #: [id number] Location: OR Room/Bed: Procedure: [id number] DX/CHEST 2 VIEWS Exam Date: Exam Time: REPORT STATUS: Signed EXAMINATION: PA and lateral views of the chest. COMPARISON: None CLINICAL HISTORY: Preoperative study for thumb surgery DISCUSSION: The lungs are well-inflated. No focal airspace consolidation, pleural effusion, or pneumothorax. Linear opacity in the lingula compatible with scar or subsegmental atelectasis. Increased attenuation over the lung bases reflects summation from overlying soft tissues. Spinal stimulator device projects over the vertebral column. Cervical spine fusion hardware partially visualized. Normal heart size without overt pulmonary edema. No acute osseous abnormality. IMPRESSION: Linear atelectasis or scar in the lingula. Otherwise no acute cardiopulmonary abnormality. Signed by: Dr. Charo Hawthonre M.D. on 07/22/2018 1:22 PM Dictated By: CHARO HAWTHORNE MD 21 Transcribed By: STEVEN on 07/22/181321 COPY TO: IZABELLA TIM MD
[2018-07-26 11:30] VITALS: BP 125/96
--- NOTE | 2018-07-26 15:17 | Operative Report ---
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 PROCEDURES PERFORMED: 1. Removal of internal orthopedic prosthesis. 2. Trapeziectomy. 3. Capsulorrhaphy. ANESTHESIA: Regional ([place] block). HISTORY: The patient is a 57-year-old female who had significantly symptomatic left CMC osteoarthritis. Approximately 10 years ago, she underwent the placement of an Orthosphere. The patient has had recurrent pain which has been recalcitrant to conservative treatment measures. She now presents for definitive removal of the internal orthopedic prosthesis, completion trapeziectomy and capsulorrhaphy. Risks, benefits and alternatives of treatment were discussed with the patient. She is prepared to undergo the procedures outlined. DETAILS OF PROCEDURE: Patient was marked preoperatively in the holding area. She was brought to the operating theater, and after the induction of adequate IV regional anesthesia she was prepped and draped in a supine position and a time out was performed. Procedure was begun by using the C-arm fluoroscope to verify the position of the internal orthopedic prosthesis. After verifying the adequacy of the block, the previous incision which was on the dorsal aspect of thumb metacarpal that was carried ulnar-patel over the volar wrist was made through the skin and subcutaneous tissues. Bleeding was controlled using the bipolar cautery. The incision was deepened through the subcutaneous tissue until the area of extensor tendons and capsule was identified. The interval between the APL and EPB tendons was identified and incised all the way down to the level of the periosteum. Using sharp dissection, periosteal sleeves were elevated off of the base of the metacarpal and off the metacarpal trapezial joint. The joint was then opened, and the capsular flaps were elevated and retracted. The Orthosphere was immediately identified, and it was removed in its entirety. The C-arm was then brought in, and the verification of the remaining trapezium was marked out. The trapezium was then removed using a rongeur in a piecemeal fashion. C-arm fluoroscope was brought in to verify the completion of the trapeziectomy. The wound was then irrigated with bacteriostatic saline, and a capsulorrhaphy was performed by closing the capsule in a [id number] fashion using 4-0 Vicryl in an interrupted horizontal mattress fashion. The wound was irrigated again, and the skin was closed with 5-0 nylon in an interrupted horizontal mattress fashion. An 0.45 K-wire was then driven across the base of the thumb metacarpal into the base of the index metacarpal under direct fluoroscopic control to prevent proximal migration of the metacarpal. The pin was cut and bent over at the level of the skin. A Marcaine field block was performed at the operative site. Bactroban ointment, Xeroform gauze and a sterile dressing were applied. A fiberglass splint was fashioned as a dorsally based thumb spica and held in place with a loosely wrapped Steven wrap. The anesthesiologist lowered the tourniquet for the [place] block in sequential fashion, and all the fingers pinked up nicely. The patient was brought to the recovery room in satisfactory condition and discharged with a postoperative instruction sheet as well as a followup appointment. Job#: [id number] NICKIE
== END | disposition home or self-care (01) ==
LOC: OR 06:34
PROVIDERS: ATTEND Plastic Surgery
DX: T84.84XA Pain due to internal orthopedic prosthetic devices, implants and grafts, initial encounter (principal); M18.12 Unilateral primary osteoarthritis of first carpometacarpal joint, left hand; I10 Essential (primary) hypertension; E11.9 Type 2 diabetes mellitus without complications; J44.9 Chronic obstructive pulmonary disease, unspecified; K21.9 Gastro-esophageal reflux disease without esophagitis; K58.9 Irritable bowel syndrome, unspecified; F41.9 Anxiety disorder, unspecified; Y83.8 Other surgical procedures as the cause of abnormal reaction of the patient, or of later complication, without mention of misadventure at the time of the procedure; Z01.810 Encounter for preprocedural cardiovascular examination; Z01.812 Encounter for preprocedural laboratory examination; Z01.818 Encounter for other preprocedural examination; Z79.84 Long term (current) use of oral hypoglycemic drugs; Z99.81 Dependence on supplemental oxygen; Z88.1 Allergy status to other antibiotic agents; Z88.2 Allergy status to sulfonamides; Z88.8 Allergy status to other drugs, medicaments and biological substances; Z87.891 Personal history of nicotine dependence
CPT/HCPCS: 25320; 26320; 36415 ×2; 71046; 80048; 82948; 85025; 93005; J1885; J2001 ×2; J2250; C1713